=== PATIENT | female | born 1970 | race Caucasian/White ===

== ENCOUNTER 2018-12-26 17:25 | Emergency (ER) | payer BC, OTHER ==
--- NOTE | 2018-12-26 18:24 | XRAY Report ---
Reason: pain swelling Procedure Date: 12/26/2018 Accession Number: [id number] / [id number] Procedure: XR - Wrist 3 View RT CPT Code: FULL RESULT: EXAM: RIGHT WRIST RADIOGRAPHY EXAM DATE: 12/26/2018 05:57 PM. CLINICAL HISTORY: Right wrist pain for 1 week, worse today. No known trauma. COMPARISON: None. TECHNIQUE: 3 views. FINDINGS: Bones: No acute fracture. No suspicious osseous lesion. Joints: No dislocation. No significant joint space narrowing. Soft Tissues: Unremarkable. IMPRESSION: No acute osseous abnormality. RADIA
[2018-12-26 19:24] VITALS: BP 121/65
--- NOTE | 2018-12-26 20:42 | ED Physician Documentation ---
PD HPI UPPER EXT INJURY - Stated complaint Stated Complaint: RT WRIST PX - Chief complaint Chief Complaint: Ext Problem - History obtained from History obtained from: Patient - History of Present Illness Location: Right, Wrist Type of injury: Other (Lifting) Timing - onset: How many weeks ago (1.5) Timing - duration: Weeks Timing - details: Gradual onset, Still present Improved by: Ice Associated symptoms: No: Numbness, Tingling, Swelling Recently seen: Not recently seen - Additonal information Additional information: Is a 48-year-old woman who started to have some pain in the right lateral wrist about a week and half ago. Then today she lifted up a heavy keyboard and she felt intense pain to the lateral wrist and she dropped the keyboard. Now the pain is radiating up to the elbow. She had no prior injury to this that she can remember. She has not taken any medications for it no numbness or tingling down into the finger. She wore a brace off and on. 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 Review of Systems Constitutional: denies: Fever Skin: denies: Rash Musculoskeletal: reports: Extremity pain, Joint pain Neurologic: denies: Generalized weakness, Numbness PD PAST MEDICAL HISTORY - Past Surgical History Past Surgical History: Yes - Present Medications Home Medications: Ambulatory Orders Medication Instructions Recorded Confirmed Ondansetron Odt [Zofran] 4 mg TL Q6H PRN #10 tablet 10/08/14 - Allergies Allergies/Adverse Reactions: Allergies Allergy/AdvReac Type Severity Reaction Status Date / Time No Known Drug Allergies Allergy Verified 12/26/18 17:43 - Social History Does the pt smoke?: No Smoking Status: Never smoker Does the pt drink ETOH?: No Does the pt have substance abuse?: No - Immunizations Immunizations are current?: Yes - POLST Patient has POLST: No PD ED PE NORMAL - Vitals Vital signs reviewed: Yes - General General: Alert and oriented X 3, No acute distress, Well developed/nourished - Extremities Extremities: No deformity, Normal ROM s pain, Other (Patient is tender to palpation along the lateral wrist at the ulnar styloid. There is tenderness of the dorsal forearm to the elbow and the lateral epicondyle.) - Neuro Neuro: Alert and oriented X 3, Normal speech Results - Vitals Vitals: Oxygen O2 Source Room air - Rads (name of study) R wrist Radiology: See rad report (Neg fracture) PD MEDICAL DECISION MAKING - ED course Complexity details: reviewed results, d/w patient ED course: Patient does not have a fracture. Suspect she has some tendinitis. Recommended anti-inflammatories and she can use a brace for comfort. Follow-up with the primary care provider if her symptoms are not improving for further management. Departure - Departure Disposition: 01 Home, Self Care Clinical Impression: Tendinitis Condition: Good Instructions: Tendonitis and Tenosynovitis Follow-Up: [facility] [Provider Group] Comments: Use the brace for comfort. Take ibuprofen [id number] for pain. Ice and limit gripping. Follow-up with your doctor for further management as needed. Discharge Date/Time: 12/26/18 21:30
== END 2018-12-26 21:30 | disposition home or self-care (01) ==
LOC: ED 17:25
DX: M77.9 Enthesopathy, unspecified (principal); M25.531 Pain in right wrist; M25.521 Pain in right elbow
CPT/HCPCS: 99282; 99283

== ENCOUNTER 2021-12-05 08:00 | Outpatient (CLI) | payer OTHER ==
--- NOTE | 2021-12-05 18:32 | XRAY Report ---
PROCEDURE: Ankle 3 View RT INDICATIONS: ANKLE PAIN TECHNIQUE: 3 views of the ankle were acquired. COMPARISON: 11/28/2021 FINDINGS: Bones: No fractures or dislocations. Ankle mortise is normally aligned. Trace pes panus alignment. Soft tissues:. Some soft tissue swelling is present. Achilles tendon appears normal. Dystrophic soft tissue calcifications in the anterior lower leg. IMPRESSION: Some soft tissue swelling is present, without acute fracture or dislocation identified. Reviewed by: Rito Hodges MD on 12/05/2021 6:31 PM PDT Approved by: Rito Hodges MD on 12/05/2021 6:31 PM PDT Station ID: [id number]
== END 2021-12-05 23:59 | disposition home or self-care (01) ==
LOC: DI.WOS 08:00
PROVIDERS: ATTEND Physician Assistant
DX: M79.89 Other specified soft tissue disorders (principal)